=== PATIENT | female | born 1980 | race Caucasian/White ===

== ENCOUNTER 2017-09-01 08:47 | Emergency (ER) | payer SELFPAY ==
[~2017-09-01] VITALS: Ht 157.5 cm; Wt 86.2 kg
[~2017-09-01 08:47] MED LIST: ALPR1TAB2 PO; FLUO40CA PO; NAPR-243 PO; PRED20TA PO
[2017-09-01] MEDS ORDERED: KETOROLAC 60 MG/2 ML VIAL IM ONE (09:30)
[2017-09-01] MEDS ORDERED: LIDOCAINE 2% VISCOUS 15 ML UDC PO ONE (09:45)
[2017-09-01] MEDS ORDERED: AMOX500T2 PO (10:06)
--- NOTE | 2017-09-01 10:06 | ED EENT ---
History of Present Illness General Chief Complaint: Dental Problems/Pain Stated Complaint: DENTAL PAIN RT SIDE Nursing Triage Note: PT REPORTS DENTAL PAIN TO R BACK UPPER AND LOWER TEETH. SHE REPORTS TAKING TRAMADOL, LAST DOSE AT 0500 THIS AM WITH NO IMPROVEMENT. Allergies and Home Medications Allergies Coded Allergies: chlorpromazine (Unverified Allergy, Unknown, 05/25/15) ethinyl estradiol (Unverified Allergy, Unknown, 05/25/15) levonorgestrel (Unverified Allergy, Unknown, 05/25/15) pregabalin (Unverified Allergy, Unknown, 05/25/15) prochlorperazine (Unverified Allergy, Unknown, 05/25/15) ziprasidone (Unverified Allergy, Unknown, 05/25/15) Home Medications Alprazolam 1 Mg Tablet, 1 MG PO, (Reported) Fluoxetine Hcl 40 Mg Capsule, 1 EACH PO DAILY, (Reported) Naproxen 500 Mg Tablet, 1 EACH PO BID PRN PRN for PAIN, #20 Ref 0 Prescribed by: ЮЛИЯ MCCOY on 05/25/15 1537 Prednisone 20 Mg Tablet, 40 MG PO DAILY, #10 Ref 0 Prescribed by: ЮЛИЯ MCCOY on 05/25/15 1537 Past Acxpolw-Lbrhhs-Ekuuox Hx Patient Social History Alcohol Use: Denies Use Recreational Drug Use: No Smoking Status: Current Everyday Smoker Type Used: Cigarettes 2nd Hand Smoke Exposure: Yes Recent Foreign Travel: No Contact w/Someone Who Travel: No Recent Infectious Disease Expo: No Recent Hopitalizations: No Physical Abuse: No Sexual Abuse: No Surgeries History of Surgeries: Yes (UMBILICAL HERNIA REPAIR X 2 ) Surgeries: Abdominal, Tubal Ligation Respiratory History of Respiratory Disorde: No Cardiovascular History of Cardiac Disorders: No Neurological History of Neurological Disord: Yes (PER PT--HAVE NO WAY TO VERIFY THIS) Neurological Disorders: Seizure Disorder, Stroke Reproductive System Hx Reproductive Disorders: No Gastrointestinal History of Gastrointestinal Di: No Musculoskeletal History of Musculoskeletal Dis: Yes Musculoskeletal Disorders: Fibromyalgia, Chronic Back Pain Endocrine History of Endocrine Disorders: No Cancer History of Cancer: No Psychosocial History of Psychiatric Problem: Yes Behavioral Health Disorders: Anxiety, PTSD, Depression Suicide Risk Score: 0 Family Medical History Significant Family History: No Pertinent Family Hx Physical Exam Vital Signs Vital Sign - Last 12Hours 09/01/17 09:04 Temp 98.9 Pulse 85 Resp 20 B/P (MAP) 155/90 Pulse Ox 97 O2 Delivery Room Air Progress/Results/Core Measures Results/Orders My Orders Orders - DESMOND ENRIQUE MD Ketorolac Injection (Toradol Injection) (09/01/17 09:30) Lidocaine 2% Viscous 15 Ml (Xylocaine Vi (09/01/17 09:45) Medications Given in ED Current Medications Medications Dose Ordered Sig/Tamia Route Start Time Stop Time Status Last Admin Dose Admin Ketorolac Tromethamine 60 mg ONCE ONCE IM 09/01/17 09:30 09/01/17 09:35 DC 09/01/17 09:41 60 MG Vital Signs/I&O Vital Sign - Last 12Hours 09/01/17 09:04 Temp 98.9 Pulse 85 Resp 20 B/P (MAP) 155/90 Pulse Ox 97 O2 Delivery Room Air Blood Pressure Mean: 111 Progress Note : Progress Note Patient was treated with a Toradol injection. She was given anesthetic gauze pads for topical pain control. Review of tracks report noted a large quantity of controlled substances prescriptions with numerous providers over the last couple of years. Patient was advised to follow-up with a dentist as soon as possible. Discharge instructions were reviewed at length with the patient. Cautions for gauze pad use were discussed with the patient. See discharge instructions. Departure Impression Impression: Primary Impression: Oral pain Disposition: 01 HOME, SELF-CARE Condition: Improved Departure-Patient Inst. Decision time for Depature: 09:30 Referrals: STEPHEN DEGROOT MD (PCP/Family) Primary Care Physician Patient Instructions: Dental Pain (DC) Add. Discharge Instructions: [place] your teeth twice daily with a soft toothbrush. Rinse twice daily with antiseptic mouth wash as tolerated. You may continue using ibuprofen up to 800 mg every 8 hours as needed for pain. Add tramadol (Ultram) for pain not controlled by ibuprofen. Complete your antibiotics as prescribed. Seek care from a dentist as soon as possible. Use anesthetic gauze pads as needed. Eat and drink with extreme caution after use as the numbing can put you at risk for choking, biting your tongue or cheek , or burning your mouth. Do NOT fall sleep with the gauze pads in your mouth. All discharge instructions reviewed with patient and/or family. Voiced understanding. Scripts Amoxicillin (Amoxicillin) 500 Mg Tablet 1000 MG PO BID, #40 TAB Prov: DESMOND ENRIQUE MD 09/01/17 DESMOND ENRIQUE MD Sep 01, 2017 10:06
[2017-09-01 10:09] VITALS: BP 155/90
== END 2017-09-01 10:09 | disposition home or self-care (01) ==
LOC: EDUNIT# 08:47 → ER 08:50
DX: K13.79 Other lesions of oral mucosa (principal); G40.909 Epilepsy, unspecified, not intractable, without status epilepticus; F17.210 Nicotine dependence, cigarettes, uncomplicated; Z86.73 Personal history of transient ischemic attack (TIA), and cerebral infarction without residual deficits; Z98.51 Tubal ligation status; Z87.19 Personal history of other diseases of the digestive system
CPT/HCPCS: 99284